=== PATIENT | male | born 1970 | race Caucasian/White ===

== ENCOUNTER 2024-10-12 13:51 | Emergency (ER) | payer OTHER, SELFPAY ==
[2024-10-12 13:59] VITALS: BP 164/83; PULSE 65; TEMP 36.6; O2SAT 98; BMI 25.1
--- NOTE | 2024-10-12 15:05 | ED.SKABFB1 ---
HPI - Skin/Abscess/Foreign Bdy General Chief complaint: Skin/Abscess/Foreign Body Stated complaint: LOCALIZED SWELLING - LIP Time Seen by Provider: 10/12/24 15:02 Source: patient Mode of arrival: walk-in History of Present Illness HPI narrative: 54 year old male presents to the ED for pain, swelling to his left upper lip. Onset was 1-2 days ago. Also reports swelling to his left lower jaw. Reports concern for abscess. He has several erythematous, raised area to his arms as well. Denies fever, chills, injury, drainage. States he poked his lip with a needle to try to express drainage; reports no relief. Related Data Previous Rx's ?Medication ?Instructions ?Recorded cephalexin 500 mg capsule 500 mg PO Q6H 10 days #40 caps 10/12/24 doxycycline monohydrate 100 mg 100 mg PO BID 10 days #20 caps 10/12/24 capsule Allergies Allergy/AdvReac Type Severity Reaction Status Date / Time No Known Drug Allergies Allergy Verified 10/12/24 14:01 Review of Systems ROS Constitutional Denies: fever, chills or fatigue Ears, nose, mouth, and throat Denies: throat pain, neck pain or throat swelling Cardiovascular Denies: chest pain Respiratory Denies: shortness of breath Integumentary/Breast Reports: redness, skin pain, skin tenderness and sores Neurological Denies: headache PFSH PFSH Social History Little interest or pleasure in doing things: not at all Feeling down, depressed, or hopeless: not at all Exam Constitutional Vital Signs, click to edit/add: Last Vital Signs Temp 97.9 F 10/12/24 13:59 Pulse 65 10/12/24 13:59 Resp 18 10/12/24 13:59 BP 164/83 H 10/12/24 13:59 Pulse Ox 98 10/12/24 13:59 O2 Del Method Room Air 10/12/24 13:59 Common normals: no apparent distress and oriented x3 General appearance: cooperative Other: Swelling, tenderness to left upper lip area and left lower jaw area. No vesicular lesions noted. Areas are firm. Multiple Erythematous, minimally raised areas to his arms. I and D not indicated at this time. HENMT Throat: posterior oropharynx normal Other: No swelling to floor of mouth. Pt speaking in full sentences, handling secretions well. Eye Common normals: conjunctivae normal and no scleral icterus Neck & C-Spine Common normals: supple Respiratory Common normals: normal respiratory effort Effort & inspection: able to speak in complete sentences and symmetric chest movement Cardio Common normals: regular rate Neuro Common normals: oriented x3 and moves all extremities Sensorium/orientation: awake and alert Course Vital Signs Vital signs: Vital Signs Temperature 97.9 F 10/12/24 13:59 Pulse Rate 65 10/12/24 13:59 Respiratory Rate 18 10/12/24 13:59 Blood Pressure 164/83 H 10/12/24 13:59 Pulse Oximetry 98 10/12/24 13:59 Oxygen Delivery Method Room Air 10/12/24 13:59 Temperature 97.9 F 10/12/24 13:59 Pulse Rate 65 10/12/24 13:59 Respiratory Rate 18 10/12/24 13:59 Blood Pressure 164/83 H 10/12/24 13:59 Pulse Oximetry 98 10/12/24 13:59 Oxygen Delivery Method Room Air 10/12/24 13:59 MDM - Skin/Abscess/Foreign Bdy MDM Narrative Medical decision making narrative: Prescriptions were provided for doxycycline and Keflex. Follow up with pcp for a recheck, further evaluation and treatment. Return to the ER for worsening symptoms. Discharge Plan Discharge Chief Complaint: Skin/Abscess/Foreign Body Clinical Impression: Abscess of skin or subcutaneous tissue Patient Disposition: Home, Self-Care Time of Disposition Decision: 15:16 Condition: Good Mode of Transportation: Private Vehicle Prescriptions / Home Meds: New doxycycline monohydrate 100 mg capsule 100 mg PO BID 10 Days Qty: 20 0RF cephalexin 500 mg capsule 500 mg PO Q6H 10 Days Qty: 40 0RF Print Language: Citizen Of [place] Instructions: Abscess (ED) Additional Instructions: Return to the ER for worsening symptoms. Referrals: Physician,Non-Staff, MD [Primary Care Provider] - 1 week
== END 2024-10-12 15:30 | disposition home or self-care (01) ==
PROVIDERS: Emergency Provider Emergency Medicine
DX: L02.818 Cutaneous abscess of other sites (principal)
CPT/HCPCS: 99283